=== PATIENT | male | born 1945 | race Caucasian/White ===

== ENCOUNTER 2024-03-06 22:18 | Emergency (ER) | payer SELFPAY ==
[~2024-03-06] VITALS: Ht 177.8 cm; Wt 80.0 kg
[2024-03-06 22:31] VITALS: O2SAT 98
[2024-03-06 23:32] VITALS: TEMP 98.2
[2024-03-06] MEDS: LIDOCAINE HCL 1% 20ML VIAL INFIL ONE (23:32)
[2024-03-06] MEDS: ACETAMINOPHEN 325MG TABLET PO ONE (23:32)
[2024-03-06] MEDS: BACITRACIN ZINC OINT UDPKT TOP ONE (23:32)
[2024-03-07] MEDS ORDERED: CEPH500C2 MT (00:48)
[2024-03-07] MEDS ORDERED: TOPUD MT (00:48)
[2024-03-07] MEDS ORDERED: IBUP-1523 MT (00:48)
[2024-03-07] MEDS: TETANUS, DIPHTHERIA, PERTUSSIS VAC/PF 0.5ML (>10YR OLD) IM ONE (01:48)
[2024-03-07 01:52] VITALS: BP 119/75; PULSE 72; RESP 17; O2SAT 97
== END 2024-03-07 01:53 | disposition home or self-care (01) ==
LOC: ER 22:18
DX: R68.89 Other general symptoms and signs (principal)
CPT/HCPCS: 99283; 90715; 90471; J3490; Z7610 ×3